=== PATIENT | female | born 2000 | race Caucasian/White ===

== ENCOUNTER 2022-05-16 16:14 | Emergency (ER) | payer OTHER ==
[~2022-05-16] VITALS: Ht 165.1 cm; Wt 92.1 kg
[2022-05-16 16:45] LABS: BASOPHILS % (AUTO) 0.3 % (0.0-5.0); EOSINOPHILS % (AUTO) 0.5 % (0.0-8.0); HEMATOCRIT 40.4 % (36-48); LYMPHOCYTES % (AUTO) 28.2 % (21.0-51.0); MEAN CORPUSCULAR HEMOGLOBIN 29.7 pg (27.0-33.0); MEAN CORPUSCULAR HGB CONC 33.7 g/dL (32.0-36.0); MEAN CORPUSCULAR VOLUME 88.2 fL (79-99); MONOCYTES % (AUTO) 7.8 % (3.0-13.0); PLATELET COUNT (AUTO) 320 K/uL (130-400); RED BLOOD CELL COUNT(AUTO) 4.58 MIL/uL (4.00-5.50); RED CELL DISTRIBUTION WIDTH 12.4 % (11.0-15.5); WHITE BLOOD COUNT (AUTO) 9.2 K/uL (4.8-10.8)
[2022-05-16 16:53] LABS: CREATININE 0.8 mg/dL (0.5-1.5); POTASSIUM 3.5 mmol/L (3.5-5.1)
[2022-05-16 16:58] LABS: ALBUMIN 3.9 g/dL (3.5-5.0)
[2022-05-16] MEDS ORDERED: KETOROLAC 15MG/ML VIAL (15MG/ML) IV ONE (17:00)
[2022-05-16] MEDS ORDERED: ACETAMINOPHEN 500 MG TABLET PO ONE (18:00)
[2022-05-16 18:29] VITALS: BP 112/61
== END 2022-05-16 18:37 | disposition home or self-care (01) ==
LOC: EDH 16:14
DX: R07.89 Other chest pain (principal); R06.02 Shortness of breath; E05.90 Thyrotoxicosis, unspecified without thyrotoxic crisis or storm; Z79.1 Long term (current) use of non-steroidal anti-inflammatories (NSAID)
CPT/HCPCS: 99285; 96374; 71045; 84484 ×2; 80053; 85025; 81025; 36415; 93005; J1885

== ENCOUNTER 2022-07-18 15:02 | Emergency (ER) | payer OTHER ==
[~2022-07-18] VITALS: Ht 165.1 cm; Wt 95.3 kg
[2022-07-18 16:00] LABS: BASOPHILS % (AUTO) 0.2 % (0.0-5.0); EOSINOPHILS % (AUTO) 1.2 % (0.0-8.0); HEMATOCRIT 38.9 % (36-48); LYMPHOCYTES % (AUTO) 28.1 % (21.0-51.0); MEAN CORPUSCULAR HGB CONC 34.2 g/dL (32.0-36.0); MEAN CORPUSCULAR VOLUME 87.8 fL (79-99); MONOCYTES % (AUTO) 8.2 % (3.0-13.0); NEUTROPHILS % (AUTO) 62.1 % (40.0-77.0); PLATELET COUNT (AUTO) 307 K/uL (130-400); RED BLOOD CELL COUNT(AUTO) 4.43 MIL/uL (4.00-5.50); RED CELL DISTRIBUTION WIDTH 12.6 % (11.0-15.5); WHITE BLOOD COUNT (AUTO) 8.6 K/uL (4.8-10.8)
[2022-07-18 16:02] LABS: APPEARANCE,URINE CLEAR (CLEAR); BILIRUBIN,URINE NEGATIVE (NEGATIVE); COLOR,URINE YELLOW (YELLOW); GLUCOSE, URINE (UA) NEGATIVE (NEGATIVE); KETONES,URINE NEGATIVE (NEGATIVE); LEUKOCYTE ESTERASE ,URINE NEGATIVE Leu/uL (NEGATIVE); NITRATE,URINE NEGATIVE (NEGATIVE); OCCULT BLOOD,URINE NEGATIVE (NEGATIVE); PROTEIN,URINE NEGATIVE (NEGATIVE); UROBILINOGEN,URINE 0.2 mg/dL (0.2-1.0)
[2022-07-18 16:06] LABS: BACTERIA,URINE RARE /HPF (None Seen); MUCUS,URINE RARE LPF (None Seen); SQUAMOUS EPITHELIAL CELL,UR FEW /HPF (0-2)
[2022-07-18 16:17] LABS: CREATININE 0.9 mg/dL (0.5-1.5); POTASSIUM 4.1 mmol/L (3.5-5.1)
[2022-07-18 16:22] LABS: ALBUMIN 3.9 g/dL (3.5-5.0); TOTAL PROTEIN, SERUM 7.6 g/dL (6.0-8.3)
[2022-07-18] MEDS ORDERED: KETOROLAC 30MG VIAL (30MG/ML) IVP ONE (17:00)
[2022-07-18] MEDS ORDERED: ONDANSETRON 4MG INJ IVP ONE (17:00)
[2022-07-18 20:34] LABS: AMPHET/METH SCREEN,URINE NEGATIVE (NEGATIVE); BARBITURATE SCREEN, URINE NEGATIVE (NEGATIVE); BENZODIAZEPINES SCREEN,URINE NEGATIVE (NEGATIVE); CANNABINOID SCREEN,URINE NEGATIVE (NEGATIVE); COCAINE SCREEN,URINE NEGATIVE (NEGATIVE)
[2022-07-18 20:35] LABS: PHENCYCLIDINE SCREEN,URINE NEGATIVE (NEGATIVE)
[2022-07-18] MEDS ORDERED: IBUP-1493 PO (21:45)
[2022-07-18 22:05] VITALS: BP 109/56
== END 2022-07-18 22:11 | disposition home or self-care (01) ==
LOC: EDH 15:02
DX: R10.2 Pelvic and perineal pain (principal); R10.32 Left lower quadrant pain; R11.2 Nausea with vomiting, unspecified; Z88.8 Allergy status to other drugs, medicaments and biological substances; Z90.89 Acquired absence of other organs
CPT/HCPCS: 99284; 74176; 96374; 76856; 96375; 80053; 80305; 84703; 83690; 85025; 87210; 87797; 87486; 36415; 81001; J2405; J1885

== ENCOUNTER 2022-09-24 15:37 | Emergency (ER) | payer OTHER ==
[~2022-09-24] VITALS: Ht 165.1 cm; Wt 92.5 kg
[~2022-09-24 15:37] MED LIST: IBUP-1493 PO
[2022-09-24] MEDS ORDERED: 0.9%NACL 1000ML 1,000 ML IV ONE (16:00)
[2022-09-24 17:04] LABS: BASOPHILS % (AUTO) 0.2 % (0.0-5.0); EOSINOPHILS % (AUTO) 0.4 % (0.0-8.0); LYMPHOCYTES % (AUTO) 34.6 % (21.0-51.0); MEAN CORPUSCULAR HEMOGLOBIN 30.2 pg (27.0-33.0); MEAN CORPUSCULAR HGB CONC 33.6 g/dL (32.0-36.0); MEAN CORPUSCULAR VOLUME 89.9 fL (79-99); MONOCYTES % (AUTO) 6.4 % (3.0-13.0); NEUTROPHILS % (AUTO) 58.2 % (40.0-77.0); PLATELET COUNT (AUTO) 273 K/uL (130-400); RED BLOOD CELL COUNT(AUTO) 4.34 MIL/uL (4.00-5.50); RED CELL DISTRIBUTION WIDTH 12.3 % (11.0-15.5); WHITE BLOOD COUNT (AUTO) 8.3 K/uL (4.8-10.8)
[2022-09-24 17:15] LABS: CREATININE 0.8 mg/dL (0.5-1.5)
[2022-09-24 17:23] LABS: TOTAL PROTEIN, SERUM 7.6 g/dL (6.0-8.3)
[2022-09-24 18:07] LABS: APPEARANCE,URINE CLOUDY (CLEAR); BILIRUBIN,URINE NEGATIVE (NEGATIVE); COLOR,URINE YELLOW (YELLOW); GLUCOSE, URINE (UA) NEGATIVE (NEGATIVE); KETONES,URINE 5 mg/dL (NEGATIVE); LEUKOCYTE ESTERASE ,URINE 250 Leu/uL (NEGATIVE); NITRATE,URINE NEGATIVE (NEGATIVE); OCCULT BLOOD,URINE NEGATIVE (NEGATIVE); PROTEIN,URINE 50 mg/dL (NEGATIVE)
[2022-09-24 18:11] LABS: HCG,QUALITATIVE URINE NEGATIVE (NEGATIVE)
[2022-09-24 18:16] LABS: BACTERIA,URINE RARE /HPF (None Seen); MUCUS,URINE RARE LPF (None Seen); SQUAMOUS EPITHELIAL CELL,UR MANY /HPF (0-2)
[2022-09-24] MEDS ORDERED: ONDANSETRON 4MG INJ IVP ONE (18:30)
[2022-09-24] MEDS ORDERED: FAMOTIDINE 20MG VIAL IV ONE (18:30)
[2022-09-24] MEDS ORDERED: MORPHINE 4 MG SYG IVP ONE (18:30)
[2022-09-24] MEDS ORDERED: BACI1CAP6 PO (20:13)
[2022-09-24] MEDS ORDERED: DICY20TA2 PO (20:13)
[2022-09-24] MEDS ORDERED: ONDA4TAB10 PO (20:13)
[2022-09-24 20:44] VITALS: BP 104/67
== END 2022-09-24 20:50 | disposition home or self-care (01) ==
LOC: EDH 15:37
DX: K52.9 Noninfective gastroenteritis and colitis, unspecified (principal); R00.0 Tachycardia, unspecified; Z20.822 Contact with and (suspected) exposure to COVID-19; Z79.899 Other long term (current) drug therapy; Z90.89 Acquired absence of other organs
CPT/HCPCS: 99284; 74176; 96374; 96361; 96375; 87635; 80053; 83690; 85025; 87088; 87804 ×2; 81001; 81025; 36415; C9803; J3490; J7030; J2405; J2270

== ENCOUNTER 2022-10-06 15:34 | Emergency (ER) | payer OTHER ==
[~2022-10-06] VITALS: Ht 165.1 cm; Wt 92.5 kg
[~2022-10-06 15:34] MED LIST changes: +BACI1CAP6 PO; +DICY20TA2 PO; +ONDA4TAB10 PO
[2022-10-06] MEDS ORDERED: ACETAMINOPHEN 500 MG TABLET PO ONE (17:30)
[2022-10-06] MEDS ORDERED: CYCL10TA16 PO (18:39)
[2022-10-06] MEDS ORDERED: IBUP-2070 PO (18:39)
[2022-10-06 18:55] VITALS: BP 110/62
[2022-10-06] MEDS ORDERED: CYCLOBENZAPRINE HCL 10 MG TABLET ONE (19:06)
[2022-10-06] MEDS ORDERED: CYCLOBENZAPRINE HCL 10 MG TABLET PO ONE (19:30)
== END 2022-10-06 19:27 | disposition home or self-care (01) ==
LOC: EDH 15:34
DX: S16.1XXA Strain of muscle, fascia and tendon at neck level, initial encounter (principal); M43.6 Torticollis; Z79.1 Long term (current) use of non-steroidal anti-inflammatories (NSAID); Z79.3 Long term (current) use of hormonal contraceptives; X58.XXXA Exposure to other specified factors, initial encounter; Y93.89 Activity, other specified; Y92.89 Other specified places as the place of occurrence of the external cause; Y99.8 Other external cause status
CPT/HCPCS: 70450; 72125; 81025

== ENCOUNTER 2022-11-18 11:45 | Emergency (ER) | payer OTHER ==
[~2022-11-18] VITALS: Ht 165.1 cm; Wt 90.7 kg
[~2022-11-18 11:45] MED LIST changes: +CYCL10TA16 PO; +IBUP-2070 PO
[2022-11-18 12:25] LABS: BASOPHILS % (AUTO) 0.5 % (0.0-5.0); EOSINOPHILS % (AUTO) 0.5 % (0.0-8.0); LYMPHOCYTES % (AUTO) 31.4 % (21.0-51.0); MEAN CORPUSCULAR HEMOGLOBIN 29.9 pg (27.0-33.0); MEAN CORPUSCULAR HGB CONC 33.8 g/dL (32.0-36.0); MEAN CORPUSCULAR VOLUME 88.5 fL (79-99); MONOCYTES % (AUTO) 6.8 % (3.0-13.0); NEUTROPHILS % (AUTO) 60.5 % (40.0-77.0); PLATELET COUNT (AUTO) 301 K/uL (130-400); RED BLOOD CELL COUNT(AUTO) 4.52 MIL/uL (4.00-5.50); RED CELL DISTRIBUTION WIDTH 12.5 % (11.0-15.5); WHITE BLOOD COUNT (AUTO) 6.5 K/uL (4.8-10.8)
[2022-11-18 12:31] LABS: HCG,QUALITATIVE URINE NEGATIVE (NEGATIVE)
[2022-11-18 12:35] LABS: APPEARANCE,URINE CLOUDY (CLEAR); BILIRUBIN,URINE NEGATIVE (NEGATIVE); COLOR,URINE LIGHT-YELLOW (YELLOW); GLUCOSE, URINE (UA) NEGATIVE (NEGATIVE); KETONES,URINE NEGATIVE (NEGATIVE); LEUKOCYTE ESTERASE ,URINE 75 Leu/uL (NEGATIVE); NITRATE,URINE NEGATIVE (NEGATIVE); OCCULT BLOOD,URINE NEGATIVE (NEGATIVE); PH,URINE 5.5 (5.0-8.0); PROTEIN,URINE NEGATIVE (NEGATIVE); UROBILINOGEN,URINE 0.2 mg/dL (0.2-1.0)
[2022-11-18 12:42] LABS: BACTERIA,URINE RARE /HPF (None Seen); SQUAMOUS EPITHELIAL CELL,UR MOD /HPF (0-2)
[2022-11-18] MEDS ORDERED: MECLIZINE HCL 25 MG TABLET PO ONE (13:00)
[2022-11-18] MEDS ORDERED: 0.9%NACL 1000ML 1,000 ML IV ONE (13:00)
[2022-11-18 13:30] LABS: CREATININE 0.7 mg/dL (0.5-1.5); POTASSIUM 3.7 mmol/L (3.5-5.1)
[2022-11-18 13:34] LABS: MAGNESIUM 1.7 mg/dL (1.80-2.40); TOTAL PROTEIN, SERUM 7.4 g/dL (6.0-8.3)
[2022-11-18 13:55] LABS: AMPHET/METH SCREEN,URINE NEGATIVE (NEGATIVE); BARBITURATE SCREEN, URINE NEGATIVE (NEGATIVE); BENZODIAZEPINES SCREEN,URINE NEGATIVE (NEGATIVE); CANNABINOID SCREEN,URINE NEGATIVE (NEGATIVE); COCAINE SCREEN,URINE NEGATIVE (NEGATIVE); OPIATE SCREEN,URINE NEGATIVE (NEGATIVE); PHENCYCLIDINE SCREEN,URINE NEGATIVE (NEGATIVE)
[2022-11-18] MEDS ORDERED: MECL-226 PO (15:00)
[2022-11-18 15:39] VITALS: BP 97/47
== END 2022-11-18 15:42 | disposition home or self-care (01) ==
LOC: EDH 11:45
DX: R00.2 Palpitations (principal); R55 Syncope and collapse; Z88.8 Allergy status to other drugs, medicaments and biological substances; Z79.899 Other long term (current) drug therapy; Z98.890 Other specified postprocedural states; Z90.89 Acquired absence of other organs
CPT/HCPCS: 99285; 96360; 70450; 71045; 96361; 83735; 84484; 80053; 80305; 85025; 87088; 81025; 36415; 93005; 81001; J7030

== ENCOUNTER 2023-01-05 21:36 | Emergency (ER) | payer OTHER ==
[~2023-01-05] VITALS: Ht 165.1 cm; Wt 96.2 kg
[~2023-01-05 21:36] MED LIST changes: +MECL-226 PO
[2023-01-05 21:45] VITALS: BP 134/87
[2023-01-05] MEDS ORDERED: PRED20TA3 PO (22:15)
[2023-01-05] MEDS ORDERED: PREDNISONE 20 MG TABLET ONE (22:25)
[2023-01-05] MEDS ORDERED: PREDNISONE 20 MG TABLET PO STA (22:31)
== END 2023-01-05 22:32 | disposition home or self-care (01) ==
LOC: EDH 21:36
DX: R21 Rash and other nonspecific skin eruption (principal); L53.9 Erythematous condition, unspecified; R10.9 Unspecified abdominal pain; E03.9 Hypothyroidism, unspecified; Z79.899 Other long term (current) drug therapy; Z98.890 Other specified postprocedural states; Z90.89 Acquired absence of other organs; Z88.8 Allergy status to other drugs, medicaments and biological substances

== ENCOUNTER 2023-02-04 14:17 | Emergency (ER) | payer OTHER ==
[~2023-02-04] VITALS: Ht 165.1 cm; Wt 96.2 kg
[~2023-02-04 14:17] MED LIST changes: +PRED20TA3 PO
[2023-02-04 14:48] LABS: BASOPHILS % (AUTO) 0.4 % (0.0-5.0); EOSINOPHILS % (AUTO) 0.7 % (0.0-8.0); HEMATOCRIT 37.6 % (36-48); LYMPHOCYTES % (AUTO) 30.9 % (21.0-51.0); MEAN CORPUSCULAR HEMOGLOBIN 30.5 pg (27.0-33.0); MEAN CORPUSCULAR HGB CONC 33.8 g/dL (32.0-36.0); MEAN CORPUSCULAR VOLUME 90.2 fL (79-99); MONOCYTES % (AUTO) 7.9 % (3.0-13.0); NEUTROPHILS % (AUTO) 59.8 % (40.0-77.0); PLATELET COUNT (AUTO) 317 K/uL (130-400); RED BLOOD CELL COUNT(AUTO) 4.17 MIL/uL (4.00-5.50); RED CELL DISTRIBUTION WIDTH 12.4 % (11.0-15.5); WHITE BLOOD COUNT (AUTO) 7.4 K/uL (4.8-10.8)
[2023-02-04 15:17] LABS: CREATININE 0.8 mg/dL (0.5-1.5); POTASSIUM 4.1 mmol/L (3.5-5.1)
[2023-02-04 15:21] LABS: ALBUMIN 3.9 g/dL (3.5-5.0); MAGNESIUM 1.8 mg/dL (1.80-2.40); TOTAL PROTEIN, SERUM 7.6 g/dL (6.0-8.3)
[2023-02-04 16:08] VITALS: BP 96/51
[2023-02-04 16:55] LABS: APPEARANCE,URINE CLOUDY (CLEAR); BILIRUBIN,URINE NEGATIVE (NEGATIVE); COLOR,URINE YELLOW (YELLOW); GLUCOSE, URINE (UA) NEGATIVE (NEGATIVE); KETONES,URINE NEGATIVE (NEGATIVE); LEUKOCYTE ESTERASE ,URINE 25 Leu/uL (NEGATIVE); NITRATE,URINE NEGATIVE (NEGATIVE); OCCULT BLOOD,URINE NEGATIVE (NEGATIVE); PH,URINE 5.5 (5.0-8.0); PROTEIN,URINE 10 mg/dL (NEGATIVE); UROBILINOGEN,URINE 0.2 mg/dL (0.2-1.0)
[2023-02-04 16:59] LABS: HCG,QUALITATIVE URINE NEGATIVE (NEGATIVE)
[2023-02-04 17:02] LABS: BACTERIA,URINE RARE /HPF (None Seen); MUCUS,URINE RARE LPF (None Seen); SQUAMOUS EPITHELIAL CELL,UR MOD /HPF (0-2)
[2023-02-04 17:04] LABS: CALCIUM OXALATE CRYSTALS,UR Few /LPF (None Seen)
[2023-02-04] MEDS ORDERED: CEPH500B PO (17:56)
== END 2023-02-04 18:05 | disposition home or self-care (01) ==
LOC: EDH 14:17
DX: G90.A Postural orthostatic tachycardia syndrome [POTS] (principal); N39.0 Urinary tract infection, site not specified; E03.9 Hypothyroidism, unspecified; Z79.1 Long term (current) use of non-steroidal anti-inflammatories (NSAID); Z79.52 Long term (current) use of systemic steroids
CPT/HCPCS: 36415; 80053; 81001; 81025; 83735; 84484; 85025; 87088; 93005

== ENCOUNTER 2023-02-28 09:54 | Emergency (ER) | payer OTHER ==
[~2023-02-28] VITALS: Ht 165.1 cm; Wt 10.0 kg
[~2023-02-28 09:54] MED LIST changes: +CEPH500B PO
[2023-02-28] MEDS ORDERED: 0.9%NACL 1000ML 1,000 ML IV ONE (10:30)
[2023-02-28] MEDS ORDERED: LOPERAMIDE HCL 2 MG CAP PO ONE (10:30)
[2023-02-28] MEDS ORDERED: ONDANSETRON 4MG INJ IVP ONE (10:30)
[2023-02-28 10:54] LABS: BASOPHILS % (AUTO) 0.4 % (0.0-5.0); EOSINOPHILS % (AUTO) 0.6 % (0.0-8.0); HEMATOCRIT 38.4 % (36-48); LYMPHOCYTES % (AUTO) 37.5 % (21.0-51.0); MEAN CORPUSCULAR HEMOGLOBIN 30.2 pg (27.0-33.0); MEAN CORPUSCULAR HGB CONC 33.9 g/dL (32.0-36.0); MEAN CORPUSCULAR VOLUME 89.1 fL (79-99); MONOCYTES % (AUTO) 7.4 % (3.0-13.0); NEUTROPHILS % (AUTO) 53.7 % (40.0-77.0); PLATELET COUNT (AUTO) 269 K/uL (130-400); RED BLOOD CELL COUNT(AUTO) 4.31 MIL/uL (4.00-5.50); RED CELL DISTRIBUTION WIDTH 12.2 % (11.0-15.5); WHITE BLOOD COUNT (AUTO) 5.1 K/uL (4.8-10.8)
[2023-02-28 10:56] LABS: APPEARANCE,URINE CLEAR (CLEAR); BILIRUBIN,URINE NEGATIVE (NEGATIVE); COLOR,URINE LIGHT-YELLOW (YELLOW); GLUCOSE, URINE (UA) NEGATIVE (NEGATIVE); KETONES,URINE NEGATIVE (NEGATIVE); LEUKOCYTE ESTERASE ,URINE NEGATIVE Leu/uL (NEGATIVE); NITRATE,URINE NEGATIVE (NEGATIVE); OCCULT BLOOD,URINE NEGATIVE (NEGATIVE); PH,URINE 7.5 (5.0-8.0); PROTEIN,URINE NEGATIVE (NEGATIVE); UROBILINOGEN,URINE 0.2 mg/dL (0.2-1.0)
[2023-02-28 10:58] LABS: HCG,QUALITATIVE URINE NEGATIVE (NEGATIVE)
[2023-02-28 11:13] LABS: CREATININE 0.8 mg/dL (0.5-1.5); POTASSIUM 3.7 mmol/L (3.5-5.1)
[2023-02-28 11:18] LABS: ALBUMIN 4.1 g/dL (3.5-5.0); TOTAL PROTEIN, SERUM 7.5 g/dL (6.0-8.3)
[2023-02-28] MEDS ORDERED: ONDA4TAB10 PO (11:33)
[2023-02-28 11:51] VITALS: BP 92/53
== END 2023-02-28 11:53 | disposition home or self-care (01) ==
LOC: EDH 09:54
DX: R11.10 Vomiting, unspecified (principal); R10.84 Generalized abdominal pain; E03.9 Hypothyroidism, unspecified; Z79.52 Long term (current) use of systemic steroids; Z98.890 Other specified postprocedural states; Z20.822 Contact with and (suspected) exposure to COVID-19
CPT/HCPCS: 99283; 96374; 87635; 96361; 80053; 85025; 87804 ×2; 81003; 81025; 36415; C9803; J7030; J2405

== ENCOUNTER 2024-06-02 13:28 | Emergency (ER) | payer OTHER ==
[~2024-06-02] VITALS: Ht 165.1 cm; Wt 97.5 kg
[~2024-06-02 13:28] MED LIST changes: +ONDA-243 PO; -ONDA4TAB10 PO
[2024-06-02 13:29] VITALS: O2SAT 99
[2024-06-02 14:10] LABS: BASOPHILS # (AUTO) 0.04 K/uL (0.00-0.20); BASOPHILS % (AUTO) 0.5 % (0.0-5.0); EOSINOPHILS # (AUTO) 0.05 K/uL (0.00-0.70); EOSINOPHILS % (AUTO) 0.6 % (0.0-8.0); HEMATOCRIT 38.4 % (36-48); IMMATURE GRANULOCYTE ABSOLUTE 0.03 K/uL (0-1); LYMPHOCYTES % (AUTO) 36.4 % (21.0-51.0); MEAN CORPUSCULAR HEMOGLOBIN 30.1 pg (27.0-33.0); MEAN CORPUSCULAR HGB CONC 34.4 g/dL (32.0-36.0); MEAN CORPUSCULAR VOLUME 87.5 fL (79-99); MONOCYTES # (AUTO) 0.4 K/uL (0.1-1.0); MONOCYTES % (AUTO) 5.4 % (3.0-13.0); NEUTROPHILS # (AUTO) 4.6 K/uL (1.8-7.7); NEUTROPHILS % (AUTO) 56.7 % (40.0-77.0); PLATELET COUNT (AUTO) 302 K/uL (130-400); RED BLOOD CELL COUNT(AUTO) 4.39 MIL/uL (4.00-5.50); RED CELL DISTRIBUTION WIDTH 12.4 % (11.0-15.5); WHITE BLOOD COUNT (AUTO) 8.2 K/uL (4.8-10.8)
[2024-06-02 14:19] LABS: CREATININE 0.5 mg/dL (0.5-1.0); POTASSIUM 5.1 mmol/L (3.5-5.1)
[2024-06-02 14:21] LABS: APPEARANCE,URINE CLEAR (CLEAR); BILIRUBIN,URINE NEGATIVE (NEGATIVE); COLOR,URINE COLORLESS (YELLOW); GLUCOSE, URINE (UA) NEGATIVE (NEGATIVE); KETONES,URINE NEGATIVE (NEGATIVE); LEUKOCYTE ESTERASE ,URINE NEGATIVE Leu/uL (NEGATIVE); NITRATE,URINE NEGATIVE (NEGATIVE); OCCULT BLOOD,URINE NEGATIVE (NEGATIVE); PH,URINE 5.5 (5.0-8.0); PROTEIN,URINE NEGATIVE (NEGATIVE); UROBILINOGEN,URINE 0.2 mg/dL (0.2-1.0)
[2024-06-02 14:23] LABS: ADD UA MICROSCOPIC YES
[2024-06-02 14:25] LABS: BACTERIA,URINE RARE /HPF (None Seen); SQUAMOUS EPITHELIAL CELL,UR RARE /HPF (0-2); WBC,URINE 0-1 /HPF (0-1)
[2024-06-02 14:28] LABS: ALBUMIN 3.9 g/dL (3.5-5.0); BILIRUBIN,TOTAL 0.4 mg/dL (0.2-1.0); MAGNESIUM 1.6 mg/dL (1.80-2.40); TOTAL PROTEIN, SERUM 7.3 g/dL (6.0-8.3)
[2024-06-02] MEDS: 0.9%NACL 1000ML 1,000 ML IV ONE (15:16)
[2024-06-02] MEDS ORDERED: ONDA-243 PO (16:47)
[2024-06-02] MEDS ORDERED: MECL-302 PO (16:47)
[2024-06-02] MEDS: mecliZINE HCL 12.5 MG TABLET PO ONE (16:52)
[2024-06-02] MEDS: ONDANSETRON 4MG INJ IVP ONE (16:52)
[2024-06-02 17:08] VITALS: BP 110/67; PULSE 74; RESP 14
== END 2024-06-02 17:09 | disposition home or self-care (01) ==
LOC: EDH 13:28
DX: R42 Dizziness and giddiness (principal); Z90.89 Acquired absence of other organs; Z91.041 Radiographic dye allergy status
CPT/HCPCS: 99285; 96374; 71045; 96361; 82550; 83735; 84484; 80053; 85025; 81001; 81025; 36415; 93005; J7030; J2405

== ENCOUNTER 2024-06-24 07:35 | Emergency (ER) | payer OTHER ==
[~2024-06-24] VITALS: Ht 165.1 cm; Wt 98.9 kg
[~2024-06-24 07:35] MED LIST changes: +MECL-302 PO
[2024-06-24] MEDS: NEOMY SULF/BACITRA/POLYMYXIN B 1 EACH PACKET TP ONE (08:23)
[2024-06-24 08:36] VITALS: BP 119/71; PULSE 69; RESP 14; TEMP 97.9; O2SAT 98
== END 2024-06-24 08:37 | disposition home or self-care (01) ==
LOC: EDH 07:35
DX: S61.210A Laceration without foreign body of right index finger without damage to nail, initial encounter (principal); Z91.041 Radiographic dye allergy status; Z79.899 Other long term (current) drug therapy; Z79.2 Long term (current) use of antibiotics; Z90.89 Acquired absence of other organs; W26.8XXA Contact with other sharp object(s), not elsewhere classified, initial encounter; Y93.89 Activity, other specified; Y92.090 Kitchen in other non-institutional residence as the place of occurrence of the external cause; Y99.8 Other external cause status
CPT/HCPCS: 99282

== ENCOUNTER → 2024-07-16 | Outpatient (CLI) | payer OTHER ==
[2024-07-16 09:19] LABS: APPEARANCE,URINE CLEAR (CLEAR); BILIRUBIN,URINE NEGATIVE (NEGATIVE); COLOR,URINE LIGHT-YELLOW (YELLOW); GLUCOSE, URINE (UA) NEGATIVE (NEGATIVE); KETONES,URINE NEGATIVE (NEGATIVE); LEUKOCYTE ESTERASE ,URINE NEGATIVE Leu/uL (NEGATIVE); NITRATE,URINE NEGATIVE (NEGATIVE); OCCULT BLOOD,URINE NEGATIVE (NEGATIVE); PH,URINE 5.5 (5.0-8.0); PROTEIN,URINE NEGATIVE (NEGATIVE); UROBILINOGEN,URINE 0.2 mg/dL (0.2-1.0)
[2024-07-16 09:24] LABS: ADD UA MICROSCOPIC NO
[2024-07-16 09:36] LABS: THYROID STIMULATING HORMONE 1.56 uIU/mL (0.36-3.74)
== END | disposition home or self-care (01) ==
LOC: LAB 07:58
PROVIDERS: ATTEND Family Medicine
DX: N28.1 Cyst of kidney, acquired (principal); N97.0 Female infertility associated with anovulation; E78.5 Hyperlipidemia, unspecified; E53.8 Deficiency of other specified B group vitamins; E55.9 Vitamin D deficiency, unspecified; E06.3 Autoimmune thyroiditis
CPT/HCPCS: 36415; 80061; 81003; 82306; 82607; 83001; 83002; 84439; 84443; 84481

== ENCOUNTER 2024-07-22 22:34 | Emergency (ER) | payer OTHER ==
[~2024-07-22] VITALS: Ht 165.1 cm; Wt 98.9 kg
[2024-07-23] MEDS: HYDROcodone/acetaMINOPHEN 10/325 MG TAB ONE (04:26)
[2024-07-23 04:47] VITALS: BP 135/72; PULSE 78; RESP 16; TEMP 97.8; O2SAT 100
[2024-07-23] MEDS: HYDROcodone/APAP 5/325 1 TAB TABLET PO ONE (04:47)
[2024-07-23] MEDS: HYDROcodone/APAP 5/325 1 TAB TABLET ONE (04:47)
== END 2024-07-23 05:11 | disposition home or self-care (01) ==
LOC: EDH 22:34
DX: S93.401A Sprain of unspecified ligament of right ankle, initial encounter (principal); Z91.041 Radiographic dye allergy status; Z79.899 Other long term (current) drug therapy; Z87.42 Personal history of other diseases of the female genital tract; Z90.89 Acquired absence of other organs; Z98.890 Other specified postprocedural states; X50.1XXA Overexertion from prolonged static or awkward postures, initial encounter; Y93.01 Activity, walking, marching and hiking; Y92.310 Basketball court as the place of occurrence of the external cause; Y99.8 Other external cause status
CPT/HCPCS: 73610

== ENCOUNTER 2024-12-03 07:29 | Emergency (ER) | payer OTHER ==
[~2024-12-03] VITALS: Ht 167.6 cm; Wt 86.2 kg
--- NOTE | 2024-12-03 07:33 | NUR ---
POISON CONTROL NOTIFIED
--- NOTE | 2024-12-03 08:08 | ERN ---
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 Typically, she administers Flexeril at night and propranolol in the morning, as advised by her glove parts inspector to avoid overlapping and space out the doses following a bradycardia episode experienced the previous year. The patient took her Flexeril last evening and, upon waking today, mistakenly combined propranolol with Flexeril in water. She controlled poison control yesterday but the call did not go through. She reports experiencing dizziness, mild lightheadedness, and sensations magdalene to having taken Benadryl. Although she feels somewhat unwell, she denies any history of falls or head injuries, as well as any palpitations, chest pain, or diaphoresis. Allergies: Coded Allergies: Iodinated Contrast Media (Unverified Allergy, Unknown, 07/18/22) Home Meds Active Scripts Meclizine HCl (Meclizine HCl) 25 Mg Tablet, 25 MG PO TID for vertigo for 7 Days, #7 TAB 0 Refills Prov:ALLISON SOMERS 06/02/24 Ondansetron (Ondansetron Odt) 4 Mg Tab.rapdis, 4 MG PO TID for 5 Days, #15 TAB Prov:ALLISON SOMERS 06/02/24 Ondansetron (Ondansetron Odt) 4 Mg Tab.rapdis, 4 MG PO Q6HPRN PRN for nausea, #16 TAB 0 Refills Prov:MORTEZA ROSADO MD 02/28/23 Cephalexin Monohydrate (Keflex) 500 Mg Cap, 500 MG PO QID for 7 Days, #28 CAP Prov:LYNN MENDENHALL 02/04/23 Prednisone (Prednisone) 20 Mg Tablet, 3 TAB PO AD for 4 Days, #12 TAB 0 Refills TAKE 1 TAB BY MOUTH THREE TIMES PER DAY X3 DAYS, THEN TAKE 1 TAB BY MOUTH TWICE A DAY X2 DAYS, THEN TAKE 1 TAB BY MOUTH ONCE A DAY X1 DAY. Prov:JAMES CHOW MD 01/05/23 Meclizine HCl (Meclizine HCl) 12.5 Mg Tablet, 25 MG PO TID PRN for DIZZINESS, #10 TAB Prov:ARNALDO DARBY [facility] 11/18/22 Ibuprofen (Ibuprofen) 600 Mg Tablet, 600 MG PO Q6H PRN for PAIN for 3 Days, #12 TAB Prov:ZALYNN V [facility] 10/06/22 Cyclobenzaprine HCl (Flexeril) 10 Mg Tab, 10 MG PO TID PRN for PAIN LEVEL 2 TO 5 for 3 Days, #9 TAB Prov:ZALYNN V [facility] 10/06/22 Bacillus Coagulans (Probiotic) 1 Each Capsule.dr, 1 EACH PO DAILY, #30 CAP Prov:ARNALDO DARBY [facility] 09/24/22 Dicyclomine HCl (Bentyl) 20 Mg Tab, 20 MG PO TID PRN for ABDOMINAL PAIN, #15 TAB Prov:ARNALDO DARBY [facility] 09/24/22 Ondansetron (Ondansetron Odt) 4 Mg Tab.rapdis, 4 MG PO TID PRN for NAUSEA/VOMITING, #10 TAB Prov:FITTINGARNALDO [facility] 09/24/22 Ibuprofen (Motrin/Advil) 800 Mg Tab, 800 MG PO TIDP PRN for PAIN, #30 TAB Prov:VALENCIA ROUSE MD 07/18/22 Past Medical History Past Medical History: Other Additional Past Medical Hx: POTS; THYROID , PCOS Surgical History: Tonsillectomy Surgical History Other: ADENOIDECTOMY Social History: Negative : 1 Para: 0 Aborts: 0 Review of System Dictation REVIEW OF SYSTEMS CONSTITUTIONAL: c/o dizziness, Denies fevers, chills, or night sweats. No unintentional weight loss reported. NEUROLOGICAL: Denies headache, amaurosis fugax, motor weakness, sensory deficit, vertigo/spinning sensation, gait abnormalities, or tremors. ENT: No hearing loss, otalgia, otorrhea, rhinitis, rhinorrhea, hoarseness, or sore throat. CARDIOVASCULAR: Denies any exertional angina, dyspnea on exertion, orthopnea, paroxysmal nocturnal dyspnea, palpitations, life-threatening arrhythmias, claudication. PULMONARY: Denies any shortness of breath, cough, phlegm/sputum, hemoptysis, pleuritic chest pain. SLEEP: Denies morning headaches, daytime somnolence or napping. Denies difficulty falling asleep, staying asleep, waking from sleep. Denies knowledge of snoring. GASTROINTESTINAL: Denies any type of dysphagia to either liquids or solids. Denies nausea, vomiting, pyrosis, early satiety, abdominal pain, diarrhea, constipation, or changes in stool consistency or caliber. Denies coffee-ground emesis, hematemesis, hematochezia, or melanotic stools. GENITOURINARY: Denies frequency, urgency, nocturia, hematuria or incontinence (Storage/Irritative symptoms.) Low urinary stream, straining to void, urinary intermittency or hesitancy, splitting of the voiding stream, terminal dribbling. ENDOCRINOLOGIC: Denies polyuria, polydipsia, polyphagia or heat/cold intolerances. HEMATOLOGIC: Denies thrombophilia/previous clots, or coagulopathy/bleeding disorders. ONCOLOGIC: Denies personal history of malignancy. DERMATOLOGIC: Denies rashes or pruritus. PSYCHIATRIC: Denies any suicidal or homicidal ideation. Denies hallucinations. Initial Vital Sign VS Vital Signs Date Time Temp Pulse Resp B/P (MAP) Pulse Ox O2 Delivery O2 Flow Rate FiO2 12/03/24 07:36 98.1 69 16 114/79 98 Room Air* 0 21 Physical Exam Dictation PHYSICAL EXAM GENERAL APPEARANCE: The patient is awake, alert, and oriented, in no acute cardiopulmonary distress. NEUROLOGICAL: Cranial nerves II-XII grossly intact. Motor is 5/5 in bilateral upper and lower extremities proximal to distal. No sensory deficits. HEENT: Face is symmetric. Pupils are equal and reactive. Extraocular movements are intact. NECK: Supple. No JVD. No thyromegaly. No submental, submandibular, pre- /postauricular, occipital or supraclavicular lymphadenopathy. CHEST: Normal chest expansion. No Telemetry. LUNGS: Absence of any rales, rhonchi or any wheezing. CARDIOVASCULAR: Regular. S1 and S2 normal. No appreciable rubs, murmurs or gallops. ABDOMEN: Soft, nontender, and nondistended. There is no rebound, voluntary gu arding, or rigidity. : Deferred. No Talavera. EXTREMITIES: Non-edematous and not cyanotic. No clubbing. Good capillary refill. SKIN: No skin breakdown. Results (Laboratory/Radiology) EKG Comment: Rate 54, sinus rhythm, normal P axis PA 139 QRS 79 QT 429 ED Course ED Course Orders Procedure Category Date Status Time 12 Lead Ekg Tracing- EKG 12/03/24 Resulted Technical 08:02 0.9% Nacl 500ml PHA 12/03/24 Complete Iv.Soln (Ns 500ml 08:30 Current Medications Medications (Trade) Dose Ordered Sig/Karel Route PRN Reason Start Time Stop Time Status Last Admin Dose Admin Sodium Chloride 500 ml @ 0 mls/hr ONCE ONCE IV 12/03/24 08:30 12/03/24 08:31 DC 12/03/24 08:47 Vital Signs Date Time Temp Pulse Resp B/P (MAP) Pulse Ox O2 Delivery O2 Flow Rate FiO2 12/03/24 10:17 98.1 64 16 106/55 98 Room Air* 0 21 12/03/24 09:51 98.1 63 16 130/63 98 Room Air* 0 21 12/03/24 07:36 98.1 69 16 114/79 98 Room Air 0 12/03/24 07:36 98.1 69 16 114/79 98 Room Air* 0 21 07:45The patient was assessed in Emergency Department triage room 2. She appears to be alert and comfortable, although she reports experiencing mild dizziness and drowsiness. Upon initial evaluation, her vital signs indicated a blood pressure of 114/79 and a pulse rate of 69. A subsequent measurement revealed a blood pressure of 120/77, with pulse rates fluctuating between 50 and 70. Poison control has been notified regarding the incident. We will proceed with obtaining an EKG. The decision regarding the necessity of emergency treatment or inpatient admission will be made based on the EKG results and the patient's clinical condition. Close observation of the patient will be maintained. 08:14 The electrocardiogram revealed a sinus rhythm with a heart rate of 54 beats per minute and a narrowing of the QRS complex. A comparison with the pre vious EKG dated June 02, 2024, indicated no changes. 10:21 After receiving the fluid bolus, the patient is feeling better. Current vitals are blood pressure 106/55, pulse rate 54 by lying down and 72 while standing up, SpO2 100%. At this time the patient does not require an emergency treatment or inpatient hospitalization. The patient was advised to space the propranolol and Flexeril moving forward. The patient verbalizes understanding. She was advised to stay home and drink plenty of fluids today and skip the dose of Flexeril tonight. Patient is medically stable for discharge Medical Decision Making MDM MDM Differential diagnosis: Bradycardia with 51-60 beats per minute, Medication adverse effect, Medication administered in error, Postural orthostatic tachycardia bradycardia syndrome Rationale: Tests considered and ordered secondary to shared decision making include: Previous outside records reviewed: Old ER visits. Risk of complication and/or morbidity or mortality of patient management: None Medications-Per medication reconciliation Need for hospitalization: Patient does not meet criteria for hospitalization. Need for emergency major/minor surgery: No There are no social concerns with this patient. Prescription drug management Prescriptions will include symptomatic care Patient's prior external medical records from other ER visits were reviewed by me as indicated. Prior testing and results from previous visits were reviewed. Prior tests were taken into account with medical decision making and resource utilization, independent historian/historians were used to obtain complete medical history. I independently interpreted the test that were performed, results were reviewed by me and considered findings on radiology if ordered. DX & DISP Disposition: Discharge Departure Impression: Primary Impression: Bradycardia with 51-60 beats per minute Additional Impressions: Medication adverse effect, Medication administered in error Condition: Stable Additional Instructions: It is advisable to stagger the administration of Propranolol and Flexeril to mitigate potential side effects such as bradycardia, drowsiness, and dizziness. Ensure to rest at home and maintain adequate hydration by consuming plenty of fluids. Adhere to the recommendations provided by your jboss architect. In the event that symptoms reoccur or worsen, please seek immediate assistance by visiting the nearest emergency department or by calling 911. Referrals: DOMI BENAVIDEZ (PCP) I have reviewed, & agreed with my scribe's, documentation. I have reviewed the case, and I agree with, Diagnosis and Plan I WAS PRESENT AND PARTICIPATED IN THE CARE OF THIS PATIENT ALONGSIDE WITH THE RESIDENT PHYSICIAN. I HAVE REVIEWED AND PERSONALLY MADE AND APPROVED THE MANAGEMENT PLAN THAT IS DOCUMENTED IN THE NOTE BY MYSELF WITH THE RESIDENT PHYSICIAN. I ACKNOWLEDGED FOR RESPONSIBILITY FOR THE PATIENT'S MANAGEMENT PLAN. I have examined patient, & reviewed all documents, & agreed W/ the Diagnosis, and Plan STEPHANIE LEHMAN MD Dec 03, 2024 08:08 BAILEY DURHAM MD Dec 06, 2024 07:24
[2024-12-03] MEDS: 0.9% NACL 500ML IV.SOLN 500 ML IV ONE (08:47)
--- NOTE | 2024-12-03 08:56 | EKG ---
[facility] Test Date: 2024-12-03 Test Time: 08:14:55 Pat Name: JASMYN ADAN Department: ED Room: Gender: F Mult Au Matic Operator: [id number] : 2000 Requested By: STEPHANIE LEHMAN Order Number: [id number] Reading MD: Yaw White Measurements Intervals [place] Rate: 54 P: 55 WV: 139 QRS: 28 QRSD: 79 T: 8 QT: 429 QTc: 406 Interpretive Statements Sinus rhythm Low voltage, precordial leads Compared to ECG 06/02/2024 13:37:05 No significant changes Electronically Signed On 12-03-2024 16:14:42 ELECTRO MECHANICAL DESIGNER by Yaw White Please click the below link to view image of tracing.
[2024-12-03 10:17] VITALS: BP 106/55; PULSE 64; RESP 16; TEMP 98.1; O2SAT 98
== END 2024-12-03 10:20 | disposition home or self-care (01) ==
LOC: EDH 07:29
DX: R00.1 Bradycardia, unspecified (principal); T50.905A Adverse effect of unspecified drugs, medicaments and biological substances, initial encounter; Z90.89 Acquired absence of other organs; Z91.041 Radiographic dye allergy status; Y92.89 Other specified places as the place of occurrence of the external cause
CPT/HCPCS: 99283; 96360; 93005; J7040

== ENCOUNTER 2025-08-06 12:05 | Emergency (ER) | payer OTHER ==
[~2025-08-06] VITALS: Ht 165.1 cm; Wt 96.6 kg
[~2025-08-06 12:05] MED LIST changes: +IBUP-1492 PO; -IBUP-2070 PO
--- NOTE | 2025-08-06 12:45 | NUR ---
PATIENT IN ER LOBBY, PENDING TEST RESULTS FOR CT EXAM.
[2025-08-06] MEDS: 0.9%NACL 1000ML 1,000 ML IV STA (12:53)
[2025-08-06 12:56] LABS: IMMATURE GRANULOCYTE ABSOLUTE 0.03 K/uL (0-1); NUCLEATED RED BLOOD CELLS 0.0 % (0.0-0.19); PLATELET COUNT (AUTO) 273 K/uL (130-400); RED BLOOD CELL COUNT(AUTO) 4.52 MIL/uL (4.00-5.50); RED CELL DISTRIBUTION WIDTH 12.4 % (11.0-15.5); WHITE BLOOD COUNT (AUTO) 8.4 K/uL (4.8-10.8)
[2025-08-06 13:00] LABS: APPEARANCE,URINE CLEAR (CLEAR); GLUCOSE, URINE (UA) NEGATIVE (NEGATIVE); LEUKOCYTE ESTERASE ,URINE NEGATIVE Leu/uL (NEGATIVE); NITRATE,URINE NEGATIVE (NEGATIVE); OCCULT BLOOD,URINE NEGATIVE (NEGATIVE)
[2025-08-06 13:02] LABS: ADD UA MICROSCOPIC YES
[2025-08-06 13:10] LABS: SQUAMOUS EPITHELIAL CELL,UR FEW /HPF (0-2)
[2025-08-06 13:12] LABS: CREATININE 0.7 mg/dL (0.5-1.0); GLOMERULAR FILTR. RATE CALC 123.0 mL/min (>90); GLUCOSE,RANDOM 90.0 mg/dL (70-105); SODIUM SERUM 138.0 mmol/L (136-145); UREA NITROGEN, BLOOD 12.0 mg/dL (7-18)
[2025-08-06 13:22] LABS: ASPARTATE AMINOTRANSFERASE 14.0 U/L (10-37); HCG,QUANTITATIVE 0.0 mIU/mL (0-5); TOTAL PROTEIN, SERUM 7.9 g/dL (6.0-8.3)
--- NOTE | 2025-08-06 13:55 | ERN ---
ED Note History of Present Illness Stated Complaint: NAUSEA,ABDOMINAL PAIN Chief Complaint: Nausea,Vomiting,Diarrhea Time Seen by MD: 12:11 Time Seen by Midlevel: 12:15 Dictation: 25-year-old female with a history of Deja's, pots coming in with complaints of nausea and diarrhea x2. Nonbloody. Patient also states she has had a low- grade fever and feels back, achiness. Patient states she feels abdominal cramping like gassy. LMP 07/13/2025. Only surgical history is tonsillectomy. Allergies: Coded Allergies: Iodinated Contrast Media (Unverified Allergy, Unknown, 07/18/22) Home Meds Active Scripts Ibuprofen (Ibuprofen 800 mg Tab) 800 Mg Tab, 800 MG PO Q8H PRN for fever or pain, #30 TAB 0 Refills Prov:ARGENTINA LOPEZ [employer]ESSMAKING TEACH[employer] 08/06/25 Meclizine HCl (Meclizine HCl) 25 Mg Tablet, 25 MG PO TID for vertigo for 7 Days, #7 TAB 0 Refills Prov:ALLISON SOMERS 06/02/24 Ondansetron (Ondansetron Odt) 4 Mg Tab.rapdis, 4 MG PO TID for 5 Days, #15 TAB Prov:ALLISON SOMERS PAC 06/02/24 Ondansetron (Ondansetron Odt) 4 Mg Tab.rapdis, 4 MG PO Q6HPRN PRN for nausea, #16 TAB 0 Refills Prov:MORTEZA ROSADO MD 02/28/23 Cephalexin Monohydrate (Keflex) 500 Mg Cap, 500 MG PO QID for 7 Days, #28 CAP Prov:LYNN MENDENHALL V [employer] 02/04/23 Prednisone (Prednisone) 20 Mg Tablet, 3 TAB PO AD for 4 Days, #12 TAB 0 Refills TAKE 1 TAB BY MOUTH THREE TIMES PER DAY X3 DAYS, THEN TAKE 1 TAB BY MOUTH TWICE A DAY X2 DAYS, THEN TAKE 1 TAB BY MOUTH ONCE A DAY X1 DAY. Prov:JAMES CHOW MD 01/05/23 Meclizine HCl (Meclizine HCl) 12.5 Mg Tablet, 25 MG PO TID PRN for DIZZINESS, #10 TAB Prov:ARNALDO DARBY [employer] 11/18/22 Ibuprofen (Ibuprofen) 600 Mg Tablet, 600 MG PO Q6H PRN for PAIN for 3 Days, #12 TAB Prov:LYNN MENDENHALL V [facility] 10/06/22 Cyclobenzaprine HCl (Flexeril) 10 Mg Tab, 10 MG PO TID PRN for PAIN LEVEL 2 TO 5 for 3 Days, #9 TAB Prov:LYNN MENDENHALL V [employer] 10/06/22 Bacillus Coagulans (Probiotic) 1 Each Capsule.dr, 1 EACH PO DAILY, #30 CAP Prov:FITTING,ARNALDO [facility] 09/24/22 Dicyclomine HCl (Bentyl) 20 Mg Tab, 20 MG PO TID PRN for ABDOMINAL PAIN, #15 TAB Prov:FITTING,ARNALDO [facility] 09/24/22 Ondansetron (Ondansetron Odt) 4 Mg Tab.rapdis, 4 MG PO TID PRN for NAUSEA/VOMITING, #10 TAB Prov:FITTINGARNALDO [employer] 09/24/22 Ibuprofen (Motrin/Advil) 800 Mg Tab, 800 MG PO TIDP PRN for PAIN, #30 TAB Prov:VALENCIA ROUSE MD 07/18/22 Past Medical History Past Medical History: Other Additional Past Medical Hx: POTS; THYROID , PCOS Surgical History: Tonsillectomy Surgical History Other: ADENOIDECTOMY Social History: Negative : 1 Para: 0 Aborts: 0 RN Note Reviewed/Agreed w/PFSH: Yes Review of System Dictation Constitutional: Negative for fever,chills, and weight loss Eyes: Negative for injury, pain,redness, and discharge ENT: Negative for injury,pain or swelling Cardiovascular: Negative for chest pain, palpitations, and edema Respiratory: Negative for shortness of breath, cough, and wheezing, Abdomen/GI: Abdominal pain, nausea and diarrhea Back: Negative for injury and pain : Negative for injury, bleeding and discharge MS/Extremity: Negative for injury and deformity Skin: Negative for rash, and discoloration Neuro: Negative for headache, weakness, numbness, tingling, and seizure Psych: Negative for suicide ideation, homicidal ideation, and hallucinations Review of Systems: was completed Initial Vital Sign VS Vital Signs Date Time Temp Pulse Resp B/P (MAP) Pulse Ox O2 Delivery O2 Flow Rate FiO2 08/06/25 12:07 99.0 96 18 101/54 98 Room Air 08/06/25 12:42 0 21 Physical Exam Dictation General: awake, alert, NAD Head/Face: Normocephalic, atraumatic Eyes: PERRL, EOMI, vision at baseline ENT: oral cavity clear, TMs clear, no signs of infection Neck: Trachea midline, supple, no nuchal rigidity Cardiovascular: RRR, normal S1/S2, No MRGs, no JVD Respiratory: CTAB, no respiratory distress, No rales or wheezes Abdomen: Soft, or tenderness on palpation to the right lower quadrant, non- distended, normal bowel sounds, no guarding or rebound. Skin: Warm, dry, normal turgor, no rash MS/Extremity: Pulses equal, no cyanosis, neurovascular intact, FROM Neuro: COAx4, GCS 15, strength 5/5, CN 2-12 intact, normal cerebellar exam, normal gait, Psych: Normal behavior, mood, and affect normal Results (Laboratory/Radiology) Laboratory/Radiology Laboratory Tests Test 08/06/25 12:38 08/06/25 12:45 White Blood Count 8.4 K/uL (4.8-10.8) Red Blood Count 4.52 MIL/uL (4.00-5.50) Hemoglobin 13.8 g/dL (12.0-16.0) Hematocrit 40.7 % (36-48) Mean Corpuscular Volume 90.0 fL (79-99) Mean Corpuscular Hemoglobin 30.5 pg (27.0-33.0) Mean Corpuscular Hemoglobin Concent 33.9 g/dL (32.0-36.0) Red Cell Distribution Width 12.4 % (11.0-15.5) Platelet Count 273 K/uL (130-400) Mean Platelet Volume 9.8 fL (7.5-10.5) Immature Granulocyte % (Auto) 0.4 % (0-1) Neutrophils (%) (Auto) 78.9 % (40.0-77.0) H Lymphocytes (%) (Auto) 12.9 % (21.0-51.0) L Monocytes (%) (Auto) 7.2 % (3.0-13.0) Eosinophils (%) (Auto) 0.4 % (0.0-8.0) Basophils (%) (Auto) 0.2 % (0.0-5.0) Neutrophils # (Auto) 6.6 K/uL (1.8-7.7) Lymphocytes # (Auto) 1.1 K/uL (1.0-4.8) Monocytes # (Auto) 0.6 K/uL (0.1-1.0) Eosinophils # (Auto) 0.03 K/uL (0.00-0.70) Basophils # (Auto) 0.02 K/uL (0.00-0.20) Absolute Immature Granulocyte (auto 0.03 K/uL (0-1) Nucleated Red Blood Cells 0.0 % (0.0-0.19) Sodium Level 138 mmol/L (136-145) Potassium Level 3.9 mmol/L (3.5-5.1) Chloride Level 102 mmol/L (101-111) Carbon Dioxide Level 25 mmol/L (21-32) Blood Urea Nitrogen 12 mg/dL (7-18) Creatinine 0.7 mg/dL (0.5-1.0) Glomerular Filtration Rate Calc 123 mL/min (>90) Random Glucose 90 mg/dL (70-105) Total Calcium 8.7 mg/dL (8.5-10.1) Total Bilirubin 0.7 mg/dL (0.2-1.0) Direct Bilirubin 0.1 mg/dL (0.0-0.3) Aspartate Amino Transf (AST/SGOT) 14 U/L (10-37) Alanine Aminotransferase (ALT/SGPT) 16 U/L (12-78) Alkaline Phosphatase 76 U/L (50-136) Total Protein 7.9 g/dL (6.0-8.3) Albumin 4.2 g/dL (3.5-5.0) Lipase 38 U/L (16-77) Human Chorionic Gonadotropin, Quant 0 mIU/mL (0-5) Urine Color YELLOW (YELLOW) Urine Appearance CLEAR (CLEAR) Urine pH 5.5 (5.0-8.0) Urine Specific Williamson 1.032 (1.001-1.031) Urine Protein 10 mg/dL (NEGATIVE) H Urine Glucose (UA) NEGATIVE mg/dL (NEGATIVE) Urine Ketones 10 mg/dL (NEGATIVE) H Urine Occult Blood NEGATIVE (NEGATIVE) Urine Nitrate NEGATIVE (NEGATIVE) Urine Bilirubin NEGATIVE mg/dL (NEGATIVE) Urine Urobilinogen 0.2 mg/dL (0.2-1.0) Urine Leukocyte Esterase NEGATIVE Pinky/uL Urine RBC 2-5 /HPF (0-1) H Urine WBC 2-5 /HPF (0-1) H Urine Squamous Epithelial Cells FEW /HPF (0-2) Urine Bacteria RARE /HPF (None Seen) ALLBLADDER AND BILE DUCTS: The gallbladder appears within normal limits. No radioopaque gallstones are seen. No biliary ductal dilatation is evident. PANCREAS: Unremarkable. SPLEEN: Unremarkable. ADRENAL GLANDS: Unremarkable. KIDNEYS, URETERS, AND BLADDER: Round well-defined hypodense lesion along the upper pole of the right kidney of approx size 2 x 1.7 cm. No hydronephrosis or hydroureter. No urinary calculi. STOMACH AND BOWEL: Unremarkable appearance of the stomach and bowel. No evidence of bowel obstruction. No evidence suggesting enteritis or colitis. APPENDIX: No evidence of acute appendicitis on CT examination. PERITONEUM: No free fluid. No free air. LYMPH NODES: Multiple subcentimetric mesenteric lymph nodes. REPRODUCTIVE: The uterus appears bulky and heterogeneous. The right ovary appears bulky. The left ovary appears unremarkable. Suggested US correlation VASCULATURE: No evidence of abdominal aortic aneurysm. BONES: No aggressive appearing osseous lesion. No acute osseous pathology evident. IMPRESSION: 1. No acute intra-abdominal or pelvic pathology. 2. Minimal right-sided pleural effusion. 3. 2.0 x 1.7 cm hypodense lesion in the upper pole of the right kidney. Renal ultrasound could further evaluate. 4. Bulky, heterogeneous uterus and bulky right ovary. 5. Multiple subcentimeter mesenteric lymph nodes. 6. Ultrasound correlation of pelvic organs suggested. /[facility] Labs Reviewed?: Yes ED Course ED Course Orders Procedure Category Date Status Time Cbc With Differential LAB 08/06/25 Complete 12:23 Basic Metabolic Panel LAB 08/06/25 Complete 12:23 Hepatic Function Panel LAB 08/06/25 Complete 12:23 Lipase LAB 08/06/25 Complete 12:23 Urinalysis Profile LAB 08/06/25 Complete 12:23 Hcg,Quantitative LAB 08/06/25 Complete 12:23 Ct Abdomen/Pelvis W/O CT 08/06/25 Resulted Contrast 12:23 0.9%Nacl 1000ml (Ns PHA 08/06/25 Complete 1000ml) 12:23 Ketorolac PHA 08/06/25 In Process Tromethamine 30mg/Ml 16:30 Current Medications Medications (Trade) Dose Ordered Sig/Karel Route PRN Reason Start Time Stop Time Status Last Admin Dose Admin Ketorolac Tromethamine (toRADol) 30 mg ONCE ONCE IVP 08/06/25 16:30 08/06/25 16:31 Sodium Chloride 1,000 ml @ 1,000 mls/hr Q1H STAT IV 08/06/25 12:23 08/06/25 13:22 DC 08/06/25 12:53 Vital Signs Date Time Temp Pulse Resp B/P (MAP) Pulse Ox O2 Delivery O2 Flow Rate FiO2 08/06/25 15:24 98.4 92 18 111/64 98 Room Air* 0 21 08/06/25 12:42 99.0 96 18 101/54 98 Room Air* 0 21 08/06/25 12:07 99.0 96 18 101/54 98 Room Air 1600/spoke with patient at length regarding clinical findings. She is aware that there is a benign-appearing cyst to her right kidney as well as ovarian cyst lesions. She Does not have an senior investment manager doctor however can she can be referred to somebody on Friday. Medical Decision Making MDM MDM: Differential diagnosis: Appendicitis/diverticulitis/gastroenteritis/uterine cyst/UTI/electrolyte imbalance/dehydration Rationale: Tests considered and ordered secondary to shared decision making include: Labs/CT Previous outside records reviewed: Old ER visits. Risk of complication and/or morbidity or mortality of patient management: None Medications-Per medication reconciliation Need for hospitalization: Patient does not meet criteria for hospitalization. None Need for emergency major/minor surgery: No There are no social concerns with this patient. Prescription drug management ibuprofen Prescriptions will include symptomatic care Patient's prior external medical records from other ER visits were reviewed by me as indicated. Prior testing and results from previous visits were reviewed. Prior tests were taken into account with medical decision making and resource utilization, independent historian/historians were used to obtain complete medical history. I independently interpreted the test that were performed, results were reviewed by me and considered findings on radiology if ordered. Medical management and examination interpretation discussions were had by me with other qualified healthcare professionals as indicated for the patient's care. DX & DISP Disposition: Discharge Departure Impression: Primary Impression: Cyst of right kidney Additional Impressions: Ovarian cyst, Pelvic pain in female, PCOS (polycystic ovarian syndrome), Pleural effusion, right Condition: Stable Scripts Ibuprofen (Ibuprofen 800 mg Tab) 800 Mg Tab 800 MG PO Q8H PRN for fever or pain, #30 TAB 0 Refills Prov: ARGENTINA LOPEZ 08/06/25 Additional Instructions: Follow-up with primary care provider in 1 to 2 days. Take medications as directed here in the emergency room. Okay to continue home medications unless otherwise discussed during your visit in the emergency room today. Return to your nearest emergency room if symptoms worsen or if there is no improvement. Call 911 if you need immediate assistance. Take Tylenol or Motrin uabs-shn-nsandsn as needed and if no contraindications are present. Increase oral hydration. A wound culture or urine culture was ordered here in the emergency room department please follow-up with primary care provider and advise them to get repeat ports from our facility. If you had any Jay wrap/splints that were applied here, please do not remove them until you see your primary care or specialty. Take copies of your labs and CT to your doctor on Friday for referral to senior investment manager physician. No work until cleared by your primary care doctor on Friday Referrals: DOMI BENAVIDEZ (PCP) Time of Disposition: 16:03 I have reviewed the case, and I agree with, Diagnosis and Plan ISAI SNOW CNP Aug 06, 2025 13:55 ARGENTINA LOPEZ Aug 06, 2025 15:52
[2025-08-06 15:24] VITALS: BP 111/64; PULSE 92; RESP 18; TEMP 98.4; O2SAT 98
--- NOTE | 2025-08-06 15:39 | HMCIMG ---
EXAM: CT Abdomen and Pelvis Without IV contrast CLINICAL HISTORY: RLQ pain, TECHNIQUE: Axial computed tomography images of the abdomen and pelvis without intravenous contrast. CONTRAST: No IV contrast. COMPARISON: CT abdomen and pelvis 09/24/2022. FINDINGS: LUNG BASES: Minimal right-sided pleural effusion. No pleural effusion on left side. LIVER: Unremarkable. GALLBLADDER AND BILE DUCTS: The gallbladder appears within normal limits. No radioopaque gallstones are seen. No biliary ductal dilatation is evident. PANCREAS: Unremarkable. SPLEEN: Unremarkable. ADRENAL GLANDS: Unremarkable. KIDNEYS, URETERS, AND BLADDER: Round well-defined hypodense lesion along the upper pole of the right kidney of approx size 2 x 1.7 cm. No hydronephrosis or hydroureter. No urinary calculi. STOMACH AND BOWEL: Unremarkable appearance of the stomach and bowel. No evidence of bowel obstruction. No evidence suggesting enteritis or colitis. APPENDIX: No evidence of acute appendicitis on CT examination. PERITONEUM: No free fluid. No free air. LYMPH NODES: Multiple subcentimetric mesenteric lymph nodes. REPRODUCTIVE: The uterus appears bulky and heterogeneous. The right ovary appears bulky. The left ovary appears unremarkable. Suggested US correlation VASCULATURE: No evidence of abdominal aortic aneurysm. BONES: No aggressive appearing osseous lesion. No acute osseous pathology evident. IMPRESSION: 1. No acute intra-abdominal or pelvic pathology. 2. Minimal right-sided pleural effusion. 3. 2.0 x 1.7 cm hypodense lesion in the upper pole of the right kidney. Renal ultrasound could further evaluate. 4. Bulky, heterogeneous uterus and bulky right ovary. 5. Multiple subcentimeter mesenteric lymph nodes. 6. Ultrasound correlation of pelvic organs suggested. /Frannie
[2025-08-06] MEDS ORDERED: IBUP-2077 PO (16:03)
== END 2025-08-06 16:12 | disposition home or self-care (01) ==
LOC: EDH 12:05
DX: N28.1 Cyst of kidney, acquired (principal); N83.201 Unspecified ovarian cyst, right side; Z90.89 Acquired absence of other organs; Z91.041 Radiographic dye allergy status
CPT/HCPCS: 99284; 74176; 96360; 80076; 80048; 84702; 83690; 85025; 81001; 36415; J7030